=== PATIENT | female | born 1955 | race Caucasian/White ===

== ENCOUNTER → 2020-04-23 10:16 | Outpatient (CLI) | payer OTHER, SELFPAY ==
--- NOTE | ~2020-04-23 | DEXA_ITS ---
Bone Density Report Name: Betzy Etienne Age: 65 Sex: Female Ethnicity: White Date of : 1955 Indication: postmenopausal; screening for osteoporosis; height loss; Referring Provider: Fernandez, Glenys Antunez Study: Bone densitometry was performed. Exam Date: April 23, 2020 Accession number: [id number] Bone Density: Region BMD T-score Z-score Classification AP Spine (L1-L4) 1.097 0.5 2.1 Normal Femoral Neck (Left) 0.723 -1.1 0.3 Osteopenia Total Hip (Left) 0.815 -1.0 0.1 Normal Femoral Neck (Right) 0.731 -1.1 0.4 Osteopenia Total Hip (Right) 0.797 -1.2 -0.1 Osteopenia Total Hip Mean 0.806 -1.1 0.0 Osteopenia World Health Organization criteria for BMD impression classify patients as: Normal (T-score at or above -1.0), Osteopenia (T-score between -1.0 and -2.5), or Osteoporosis (T-score at or below -2.5). 10-year Fracture Risk(1): Major Osteoporotic Fracture 6.4% Hip Fracture 0.5% Reported Risk Factors: [place] (), Neck BMD=0.731, BMI=17.9 (1) FRAX(R) Version 3.08. Fracture probability calculated for an untreated patient. Fracture probability may be lower if the patient has received treatment. Previous Exams: Region Exam Age BMD T-score BMD Change BMD Change Date g/cm2 vs Baseline vs Previous AP Spine(L1-L4) 04/23/2020 65 1.097 0.5 -0.010 -0.010 06/25/2017 62 1.107 0.5 Total Hip(Left) 04/23/2020 65 0.815 -1.0 -0.030* -0.030* 06/25/2017 62 0.845 -0.8 Total Hip(Right) 04/23/2020 65 0.797 -1.2 -0.051* -0.051* 06/25/2017 62 0.849 -0.8 *Denotes significance at 95% confidence level, LSC for AP Spine = 0.022 g/cm2, LSC for Total Hip = 0.027 g/cm2 Clinical Information Provided by Patient: Has used the following medications: Vitamin D, Calcium, MTV Patient maximum height was 66 Menopause Age: 55 Does not regularly consume dairy products Drinks caffeinated beverages Onset of menses at age 14 Number of children 1 Missed period for more than 6 months in a row Impression: The patient has low bone mass, based on the Right Total Hip T-score. The patient has an estimated ten-year risk of hip fracture of 0.5% and an estimated ten-year risk of major fracture of 6.4%, based on the WHO FRAX algorithm. The BMD for the Total Hip(Left) decreased, changing by -0.030 since the last DXA exam. The BMD for the Total Hip(Right) decreased, changing by -0.051 since the
--- NOTE | ~2020-04-23 | MM_ITS ---
EXAMINATION: MM screening [facility] BI w mello HISTORY: Screening mammogram TECHNIQUE: Craniocaudal and mediolateral oblique 3-D tomosynthesis images were obtained and synthetic 2-D images were generated. CAD analysis was submitted and interpreted. COMPARISON: 08/23/2018, 06/16/2017 bilateral digital screening mammogram examinations BREAST PARENCHYMAL COMPOSITION: There are scattered areas of fibroglandular density. FINDINGS: There is a biopsy marker on the left; history of prior benign left breast biopsy. There is no evidence of suspicious mass, calcification, or architectural distortion to suggest malig tri in either breast. There has been no suspicious interval change. IMPRESSION: 1. No mammographic evidence of malignancy. 2. Recommend routine screening mammography in one year. BI-RADS Category 1: Negative Reviewed, dictated and finalized at location A. HELP DESK ASSOCIATE
== END ==
PROVIDERS: Visit Provider Nurse Practitioner Obstetrics & Gynecology
DX: Z12.31 Encounter for screening mammogram for malignant neoplasm of breast (principal); Z13.820 Encounter for screening for osteoporosis; M85.852 Other specified disorders of bone density and structure, left thigh; M85.851 Other specified disorders of bone density and structure, right thigh
CPT/HCPCS: 77063; 77067; 77080

== ENCOUNTER → 2021-09-18 10:39 | Outpatient (CLI) | payer OTHER, SELFPAY ==
--- NOTE | ~2021-09-18 | MM_ITS ---
EXAMINATION: MM screening [facility] BI w mello HISTORY: Screening TECHNIQUE: Craniocaudal and mediolateral oblique 3-D tomosynthesis images were obtained and synthetic 2-D images were generated. CAD analysis was submitted and interpreted. COMPARISON: Comparison to multiple prior studies sequentially, with oldest reviewed study dated 06/16. BREAST PARENCHYMAL COMPOSITION: The breasts are heterogeneously dense, which may obscure small masses . FINDINGS: There is no evidence of suspicious mass, calcification, or architectural distortion to sugg est malignancy in either breast. There has been no suspicious interval change. IMPRESSION: 1. No mammographic evidence of malignancy. 2. Recommend routine screening mammography in one year. BI-RADS Category 1: Negative Reviewed, dictated and finalized at location A.
== END ==
PROVIDERS: PCP Nurse Practitioner Obstetrics & Gynecology; Visit Provider Nurse Practitioner Obstetrics & Gynecology
DX: Z12.31 Encounter for screening mammogram for malignant neoplasm of breast (principal)
CPT/HCPCS: 77063; 77067

== ENCOUNTER → 2022-04-28 10:25 | Outpatient (CLI) | payer OTHER, MEDICARE, SELFPAY ==
--- NOTE | ~2022-04-28 | DEXA_ITS ---
Bone Density Report Name: LIANNA CHARLES Age: 67 Sex: Female Ethnicity: White Date of : 1955 Indication: osteopenia; height loss;postmenopausal Referring Provider: Fernandez, Glenys Antunez Study: Bone densitometry was performed. Exam Date: April 28, 2022 Accession number: [id number] Bone Density: Region BMD T-score Z-score Classification AP Spine (L1-L4) 1.087 0.4 2.1 Normal Femoral Neck (Left) 0.698 -1.4 0.2 Osteopenia Total Hip (Left) 0.751 -1.6 -0.3 Osteopenia Femoral Neck (Right) 0.770 -0.7 0.8 Normal Total Hip (Right) 0.758 -1.5 -0.3 Osteopenia Total Hip Mean 0.755 -1.6 -0.3 Osteopenia World Health Organization criteria for BMD impression classify patients as: Normal (T-score at or above -1.0), Osteopenia (T-score between -1.0 and -2.5), or Osteoporosis (T-score at or below -2.5). 10-year Fracture Risk(1): Major Osteoporotic Fracture 6.8% Hip Fracture 0.7% Reported Risk Factors: [place] (), Neck BMD=0.698, BMI=17.1 (1) FRAX(R) Version 3.08. Fracture probability calculated for an untreated patient. Fracture probability may be lower if the patient has received treatment. Previous Exams: Region Exam Age BMD T-score BMD Change BMD Change Date g/cm2 vs Baseline vs Previous AP Spine(L1-L4) 04/28/2022 67 1.087 0.4 -0.020 -0.010 04/23/2020 65 1.097 0.5 -0.010 -0.010 06/25/2017 62 1.107 0.5 Total Hip(Left) 04/28/2022 67 0.751 -1.6 -0.094* -0.064* 04/23/2020 65 0.815 -1.0 -0.030* -0.030* 06/25/2017 62 0.845 -0.8 Total Hip(Right) 04/28/2022 67 0.758 -1.5 -0.091* -0.040* 04/23/2020 65 0.797 -1.2 -0.051* -0.051* 06/25/2017 62 0.849 -0.8 *Denotes significance at 95% confidence level, LSC for AP Spine = 0.022 g/cm2, LSC for Total Hip = 0.027 g/cm2 Clinical Information Provided by Patient: Has used the following medications: Vitamin D, Calcium, MTV Patient maximum height was 66 Menopause Age: 55 Drinks caffeinated beverages Onset of menses at age 14 Number of children 1 Impression: The patient has low bone mass, based on the Left Total Hip T-score. The patient has an estimated ten-year risk of hip fracture of 0.7% and an estimated ten-year risk of major fracture of 6.8%, based on the WHO FRAX algorithm. The BMD for the Total Hip(Left) decreased, changing by -0.064 since the las
== END ==
PROVIDERS: PCP Nurse Practitioner Obstetrics & Gynecology; Visit Provider Nurse Practitioner Obstetrics & Gynecology
DX: Z78.0 Asymptomatic menopausal state (principal); M85.852 Other specified disorders of bone density and structure, left thigh; M85.851 Other specified disorders of bone density and structure, right thigh
CPT/HCPCS: 77080

== ENCOUNTER → 2023-05-22 12:28 | Outpatient (CLI) | payer MEDICARE, SELFPAY ==
--- NOTE | ~2023-05-22 | MM_ITS ---
EXAMINATION: MM screening [facility] BI w mello HISTORY: Screening mammogram TECHNIQUE: Craniocaudal and mediolateral oblique 3-D tomosynthesis images were obtained and synthetic 2-D images were generated. CAD analysis was submitted and interpreted. COMPARISON: September 18, 2021, April 23, 2020, August 23, 2018 screening mammogram examinations BREAST PARENCHYMAL COMPOSITION: The breasts are heterogeneously dense, which may obscure small masses . FINDINGS: New 4 mm low density circumscribed opacity in the upper outer quadrant of the right breast. Diagnostic right mammogram and right breast ultrasound examination are recommended. Otherwise there is no evidence of suspicious mass, calcification, or architectural distortion to sugg est malignancy in either breast. There has been no other suspicious interval change. IMPRESSION: 1. New 4 mm low-density circumscribed mass, upper outer right breast 2. Diagnostic right mammogram and right breast ultrasound examination are recommended BI-RADS Category 0: Incomplete: Needs additional imaging evaluation. Reviewed, dictated and finalized at location A. Y FARM OPERATOR IMPRESSION: 1. New 4 mm low-density circumscribed mass, upper outer right breast 2. Diagnostic right mammogram and right breast ultrasound examination are recom mended BI-RADS Category 0: Incomplete: Needs additional imaging evaluation.
== END ==
PROVIDERS: PCP Internal Medicine; Visit Provider Internal Medicine
DX: Z12.31 Encounter for screening mammogram for malignant neoplasm of breast (principal); R92.8 Other abnormal and inconclusive findings on diagnostic imaging of breast
CPT/HCPCS: 77063; 77067

== ENCOUNTER → 2023-06-19 08:40 | Outpatient (CLI) | payer MEDICARE, SELFPAY ==
--- NOTE | ~2023-06-19 | MMUS_ITS ---
EXAMINATION: MM diagnostic jeffrey RT w mello, US breast RT limited HISTORY: Right breast mass on screening mammogram TECHNIQUE: Additional 3-D tomosynthesis images of the right breast were performed and synthetic 2-D i mages were generated. CAD analysis was submitted and interpreted. High resolution limited right breas t ultrasound was performed. COMPARISON: 05/22/2023, 09/18/2021, 04/23/2020 FINDINGS: MAMMOGRAPHIC FINDINGS: There is a 5 mm oval, obscured, low density mass in the middle third of the upper outer quadrant of t he breast at the 11:00 location, 3 cm from the nipple. No suspicious calcification or architectural d istortion are identified. ULTRASOUND: There is a 4 mm cyst at the 11:00 location 3.5 cm from the nipple. There is a 4 mm cyst at the 11:00 location near the nipple. IMPRESSION: 1. No mammographic or sonographic evidence of malignancy. 2. Recommend routine screening mammography in one year. BI-RADS Category 2: Benign finding(s). Reviewed, dictated and finalized at location A. ET SALES SUPERVISOR IMPRESSION: 1. No mammographic or sonographic evidence of malignancy. 2. Recommend routine screening mammography in one year. BI-RADS Category 2: Benign finding(s).
== END ==
PROVIDERS: PCP Internal Medicine; Visit Provider Internal Medicine
DX: R92.8 Other abnormal and inconclusive findings on diagnostic imaging of breast (principal)
CPT/HCPCS: 76642; 77061; 77065; G0279

== ENCOUNTER 2024-10-24 11:44 | Outpatient (CLI) | payer MEDICARE, SELFPAY ==
--- NOTE | ~2024-10-24 | DEXA_ITS ---
Bone Density Report Name: LIANNA CHARLES Age: 69 Sex: Female Ethnicity: White Date of : 1955 Indication: postmenopausal; screening for osteoporosis; height loss; Referring Provider: RAKESH, JONEL Patel Study: Bone densitometry was performed. Exam Date: October 24, 2024 Accession number: [id number] Bone Density: Region BMD T-score Z-score Classification AP Spine(L1-L4) 1.079 0.3 2.2 Normal Femoral Neck (Left) 0.698 -1.4 0.3 Osteopenia Total Hip (Left) 0.776 -1.4 0.0 Osteopenia Femoral Neck (Right) 0.673 -1.6 0.1 Osteopenia Total Hip (Right) 0.764 -1.5 -0.1 Osteopenia Total Hip Mean 0.770 -1.5 -0.1 Osteopenia World Health Organization criteria for BMD impression classify patients as: Normal (T-score at or above -1.0), Osteopenia (T-score between -1.0 and -2.5), or Osteoporosis (T-score at or below -2.5). 10-year Fracture Risk(1): Major Osteoporotic Fracture 7.3% Hip Fracture 1.0% Reported Risk Factors: [place] (), Neck BMD=0.673, BMI=16.1 (1) FRAX(R) Version 3.08. Fracture probability calculated for an untreated patient. Fracture probability may be lower if the patient has received treatment. Clinical Information Provided by Patient: Has used the following medications: Vitamin D, Calcium Has the following medical conditions: [facility] Patient maximum height was 67.0 Menopause Age: 57 Does not regularly consume dairy products Drinks caffeinated beverages Onset of menses at age 14 Number of children 1 Impression: The patient has low bone mass, based on the Right Femoral Neck T-score. The patient has an estimated ten-year risk of hip fracture of 1% and an estimated ten-year risk of major fracture of 7.3%, based on the WHO FRAX algorithm. Discussion: BONE DENSITY IS LOW AT ONE OR MORE SKELETAL SITES. This patient's lowest T-score is low at one or more skeletal sites. It meets the World Health Organization's (WHO) criteria for ?low bone mass? (T-score between -1.0 and -2.5). The patient's 10-year risk of fracture as calculated by FRAX is less than the threshold where pharmacological therapy is recommended by the National Osteoporosis Foundation (NOF). However, all treatment decisions require clinical judgment and consideration of individual patient factors, including patient preferences, comorbidities, previous drug use, risk factors not captured in the FRAX model (e.g., frailty, falls, vitamin D deficiency, increased bone turnover, interval significant decline in bone density) and possible under or overestimation of fracture risk by FRAX. The patient should follow a healthful lifestyle (good nutrition with adequate calcium and vitamin D, and appropriate weight-bearing exercise). Follow-Up: Consider repeating this study in 2 to 3 years to reassess this patient's status, or sooner if there is some new clinical indication. Reported by: DARINEL on 10/24/2024 12:30:00 PM. Reviewed, dictated and finalized at location A.
--- OUTSIDE RECORDS SUMMARY | 2024-10-24 12:04 | XMS_ITS | Referral Summary ---
Author Organization [facility] [address] Address [address] [place] [address] Care Team Providers Care Rural Carrier Associate Name Role Phone Rodney Mathis MD Primary Care Provider [phone] Encounters Date Type Department Care Team Description 07/29/2024 [facility] [address] [facility] [address] [place] [address] Rodney Mathis MD uti 07/29/2024 Telephone [facility] Gastroenter[facility] [address] [facility] 12th [place] [address] [place] [id number] Chela Roca RN 07/27/2024 1:41 PM [facility] Anesthesia Event [facility] [place] [address] [facility] [address] [place] [id number] Vicky Boone MD Weinzettel, Aaron M. HIGHWAY ENGINEER 07/27/2024 3:15 PM [facility] - 07/27/2024 4:00 PM [facility] Surgery [facility] [place] [address] [facility] [address] [place] [id number] George Grove MD PhD COLONOSCOPY 07/27/2024 1:09 PM [facility] - 07/27/2024 3:22 PM [facility] Hospital Encounter [facility] [place] [address] [facility] [address] [place] [id number] George Grove MD PhD Discharge Disposition: Discharge to home or self care 07/25/[address] [facility] Specialty Services [address] [place] [phone] Mariia Hong RN from Last 3 Months Allergies Active Allergy Reactions Criticality Noted Date Comments Nitrofurantoin Monohyd/M-Cryst Headache Low 04/09 Tree Nut Tree Nuts Medications multivitamin with minerals tablet Take 1 tablet by mouth daily Active EPINEPHrine 0.3 mg/0.3 mL auto-injection syringeIndicati ons:Anaphylaxis Inject 0.6 mL (0.6 mg total) into the muscle as instructed as needed for anaphylaxis Call 911 after use. 2 each 3 Active olmesartan (BENICAR) 20 mg tablet TAKE 1 TABLET BY MOUTH EVERY DAY 90 tablet 1 5 Active polyethylene glycol (GoLYTELY) 236-22.74-6.74 -5.86 gram solution Two days before your test on 07/20 At 6 pm, drink 2 liters (half) of 1st jug of nulytely. Then on the day before your test 07/21 At 10:00 am drink the 2nd half (2 Liters) of the 1st jug of Nulytely; Then at 6 pm drink 2 liters (Half) of the 2nd jug of Nulytely, And lastly on the day of test 07/22 At 3:30 am drink the remaining 2 Liters of 2nd jug of Nulytely. 4000 mL 5 Active Active Problems Problem Noted Date Diagnosed Date Constipation 07/19/2024 Essential hypertension 10/14/2021 Assessment & Plan (01/13/2024 9:57 AM CDT): BP doing well. Numerous blood pressure she brings from home are reviewed. Will continue as before RTO 6 months Immunizations Immunization Administration Dates Next Due Flucelvax Influenza Quad 03/07/2019,03/02/2018 Influenza, Quad, Adjuvantated, Intramuscular 07/2022,03/25/2022 Influenza, Quadrivalent, Fatemeh l Culture-based MDCK, Preservative Free, Antibiotic Free, Intramuscular 03/25/2021 Influenza, Quadrivalent, Rec ombinant, Egg Free, Preservative Free, Intramuscular 03/22/2016 Influenza, Quadrivalent, Spl it, Preservative Free, Intramuscular 02/22/2020,03/05/2017 Influenza, Trivalent, Adjuvanted, Intramuscular 03/30/2024 Influenza, Trivalent, IM (MDV) 04/08/2015,2012 Pneumococcal Conjugate Pcv20 04/24/2022 ZOSTER LIVE 03/06/2017 ZOSTER Recombinant 07/08/2020,01/21/2020 Social History Tobacco Use Types Packs/Day Years Used Date Smoking Tobacco: Never Alcohol Use Standard Drinks/Week Comments Yes 0 (1 standard drink = 0.6 oz pur e alcohol) AUDIT-C Answer Date Recorded Q1: How often do you have a drink containing alc ohol? Monthly or less 07/27/2024 Q2: How many drinks containi ng alcohol do you have on a typical day when you are drinking? 1 or 2 07/27/2024 Frequency of Binge Drinking Not on file 09/2024 PHQ-2 Answer Date Recorded PHQ-2 Total Score (If total score is 3 or more points, staff should administer the PHQ-9) 0 01/07/2023 Personal Safety Answer Date Recorded Have you ever been in or are you currently in a harmful physical or emotional relationship or is someone making you feel afraid or unsafe? Denies 07/27/2024 Comments No Sex and Gender Information Value Date Recorded Sex Assigned at Not on file Legal Sex Female 2:20 AM [facility] Gender Identity Female 04/10/2021 7:33 PM [facility]E Sexual Orientation Straight 04/10/2021 7: 33 PM [facility] Last Filed Vital Signs Vital Sign Reading Time Taken Comments Blood Pressure 151/76 07/27/2024 2:55 PM [facility] Pulse 84 07/27/2024 2:55 PM [facility] Temperature 36.3 C (97.3 F) 07/27/2024 2:35 PM [facility] Respiratory Rate 14 07/27/2024 2:55 PM [facility] Oxygen Saturation 99% 07/27/2024 2:55 PM [facility] Inhaled Oxygen Concentration - - Weight 43.5 kg (96 lb) 07/27/2024 1:15 PM [facility] Height 167.6 cm (5' 6) 07/27/2024 1:15 PM [facility] Body Mass Index 15.49 07/27/2024 1:15 PM [facility]E Plan of Treatment Scheduled Procedures Name Priority Associated Diagnoses Date/Ti me COLONOSCOPY Encounter for screening colonoscopy Procedures Procedure Name Priority Date/Time Associated Diagnosis Comments COLONOSCOPY Open Access 07/27/2024 1:41 PM [facility] Constipation, unspecified constipation type COLONOSCOPY 07/27/2024 1:40 PM [facility]E from Last 3 Months Results * Colonoscopy (07/27/2024 1:40 PM [facility]) Anatomical Region Laterality Modality Other Narrative Procedure Note George Grove MD PhD - 07/27/2024 1:40 PM [facility] Patient Name: Betzy Etienne Procedure Date: 07/27/2024 1:40 PM Date of : 1955 Admit Type: Outpatient Age: 69 Gender: Female Attending MD: George Grove M.D. Room: [facility] RO[facility] 3 Note Status: Finalized Procedure: Colonoscopy Indications: Screening for colorectal malignant neoplasm, Thisis the patient's first colonoscopy, Incidental - Constipation Referring MD: Rodney Mathis M.D. Providers: George Grove M.D. Medicines: Monitored Anesthesia Care Complications: No immediate complications. Estimated Blood Loss: Estimated blood loss: none. Procedure: Pre-Anesthesia Assessment: - Immediately prior to administration ofmedications, the patient was re-assessed for adequacy to receive sedatives. - The risks and benefits of the procedure and the sedation options and risks were discussed with the patient. All questions were answered and informed consent was obtained. The benefits, risks and alternatives of theprocedure and sedation were discussed and informed consentwas obtained. All questions were answered. Please referto the signed informed consent document in the medical record. The scope was passed under direct vision.The [id number] endoscope was introduced through the anus and advanced to the terminal ileum, with identification of the appendiceal orifice and IC valve. The colonoscopy was performed without difficulty. The patient tolerated the procedurewell. The quality of the bowel preparation was evaluated using the BBPS ([place] Bowel Preparation Scale)with scores of: Right Colon = 3, Transverse Colon = 3and Left Colon = 3 (entire mucosa seen well with no residual staining, small fragments of stool oropaque liquid). The total BBPS score equals 9. The bowel preparation used was GoLYTELY via extended prepdose instruction. The quality of the bowel preparationwas excellent. Bowel prep was administered using asplit dose. Findings: The perianal and digital rectal examinations were normal. The terminal ileum appeared normal. A few diverticula were found in the sigmoid colon and ascendingcolon. Non-bleeding internal hemorrhoids were found during retroflexion. The exam was otherwise without abnormality on direct and retroflexion views. Impression: - The examined portion of the ileum was normal. - Diverticulosis in the sigmoid colon and in the ascending colon. - The examination was otherwise normal on directand retroflexion views. - No specimens collected. Recommendation: - Discharge patient to home. - Consider repeat colonoscopy in 10 years for screening purposes. - For constipation, consider high fiber diet anddaily Miralax with now threshold to downtitrate if doing well. Persistent constipation despite these interventions may warrant evaluation with a GI provider. Electronically signed by George Grove MD George Grove M.D. 07/27/2024 2:41:37 PM . Number of Addenda: 0 Note Initiated On: 07/27/2024 1:40 PM George Grove MD PhD ENDOSCOPY PROCEDURES Final Result from Last 3 Months Insurance [employer] [facility] Address: [facility] [id number] [place] [phone] [place] [address] [facility] PPO [employer] MEDICARE A[employer] MEDICARE Advance Directives For more information, please contact: [phone] * Full Code (Latest Code Status on File) Date Activated Date Inactivated Comments 07/27/2024 1:13 PM 07/27/2024 7:23 PM Care Teams Rural Carrier Associate Relationship Specialty Start Date End Date Rodney Mathis MD PCP - General Internal Medicine 06/01/20
--- OUTSIDE RECORDS SUMMARY | 2024-10-24 12:04 | XMS_ITS | Clinical Summary ---
Author Organization [facility] [address] Address [address] [place] [address] Care Team Providers Care Nail Assembly Machine Operator Name Role Phone Rodney Mathis MD Primary Care Provider [phone] Allergies Active Allergy Reactions Criticality Noted Date [...] Will continue as before RTO 6 months Encounters Date Type Department Care Team Description 07/29/2024 Telephone [facility] [address] [facility] [address] [place] [address] Rodney Mathis MD uti 07/29/2024 Telephone [facility] Gastroenterology [address] [facility] [address] 12th [place] [address] [place] [id number] Chela Roca RN 07/27/2024 3:15 PM PROGRAMMER ENGINEERING [employer] SCIENT[employer] - 07/27/2024 4:00 PM PROGRAMMER ENGINEERING [employer] SCIENTIFIC Surgery [facility] Digestive [facility] [address] [facility] [address] [place] [address] George Grove MD PhD COLONOSCOPY 07/27/2024 1:41 PM PROGRAMMER ENG[employer] SCIENT[employer] Anesthesia Event [facility] Digestive [facility] [address] [facility] [address] [place] [address] Vicky Boone MD Weinzettel, Aaron M., LOOM OPERATOR APPRENTICE 07/27/2024 1:09 PM PROGRAMMER ENGINEERING [employer] SCIENTIFIC - 07/27/2024 3:22 PM PROGRAMMER ENGINEERING [employer] SCIENTIFIC Hospital Encounter [facility] Digestive [place] [address] [facility] [address] [place] [address] George Grove MD PhD Discharge Disposition: Discharge to home or self care 07/25/2024 Telephone [facility] Specialty Services [address] [place] [address] Mariia Hong RN from Last 3 Months Immunizations Immunization Administration Dates Next Due Flucelvax [...] 04/24/2022 ZOSTER LIVE 03/06/2017 ZOSTER Recombinant 07/08/2020,01/21/2020 Surgical History Surgery Date Site/Laterality Comments SECTION Medical History Medical History Date Comments Hypertension Hypertension Hx Other Medical Chronic Anxiety Family History Medical History Relation Name Comments Other Father 2 Natural Causes; Stroke Mother 2 Stroke; Relation Name Status Comments Father 1 Alive Father 2 Mother 1 Alive Mother 2 Social History Tobacco Use Types Packs/Day Years [...] on file Legal Sex Female 2:20 AM PROGRAMMER ENGINEERING [employer] SCIENTIFIC Gender Identity Female 04/10/2021 7:33 PM PROGRAMMER ENGINEERING [employer] SCIENTIFIC Sexual Orientation Straight 04/10/2021 7: 33 PM PROGRAMMER ENGINEERING [employer] SCIENTIFIC Obstetrics History Last Filed Vital Signs Vital Sign Reading Time Taken Comments Blood Pressure 151/76 07/27/2024 2:55 PM PROGRAMMER ENG[employer]ERING [employer] SCIENTIFIC Pulse 84 07/27/2024 2:55 PM PROGRAMMER ENGINEERING [employer] SCIENTIFIC Temperature 36.3 C (97.3 F) 07/27/2024 2:35 PM PROGRAMMER ENGINEERING [employer] SCIENTIFIC Respiratory Rate 14 07/27/2024 2:55 PM PROGRAMMER ENGINEERING [employer] SCIENTIFIC Oxygen Saturation 99% 07/27/2024 2:55 PM PROGRAMMER ENGINEERING [employer] SCIENTIFIC Inhaled Oxygen Concentration - - Weight 43.5 kg (96 lb) 07/27/2024 1:15 PM PROGRAMMER ENGINEERING AND SCIENTIFIC Height 167.6 cm (5' 6) 07/27/2024 1:15 PM PROGRAMMER ENGINEERING [employer] SCIENTIFIC Body Mass Index 15.49 07/27/2024 1:15 PM PROGRAMMER ENGINEERING AND SCIENTIFIC Plan of Treatment Scheduled Procedures Name Priority Associated Diagnoses Date/Ti me COLONOSCOPY Encounter for screening colonoscopy Health Maintenance Due Date Last Done Comments Hepatitis C Screening 1955 Osteoporosis Screening-Bone Density Scan 1955 DTaP/Tdap/Td Vaccine (1 - Tdap) 02/01/1968 Hepatitis B Screening 1975 Depression Screening 01/08/2024 01/07/2023 Well Visit 65+ 01/08/2024 01/07/2023, 06/04/2020 Breast Cancer Screening-Mammogram 05/26/2024 05/26/2023, 09/18/2021, 04/23/2020 Covid-19 Vaccine (2023-2 5 season) 2024 05/03/2024, 04/29/2023, 03/04/2022, Additional history exists Fall Risk Assessment 07/27/2025 07/27/2024, 01/08/20 23 Colon Cancer Screening-Colonoscopy 07/27/20342024 Zoster Vaccine Completed 07/08/2020, 12/24, 03/06/2017 Pneumococcal vaccine 65+ Completed 04/24/2022 Influenza Vaccine Completed 03/30/2024, , 03/25/2022, Additional history exists Procedures Procedure Name Priority Date/Time Associated Diagnosis Comments COLONOSCOPY Open Access 07/27/2024 1:41 PM PROGRAMMER ENGINEERING [employer] SCIENTIFIC Constipation, unspecified constipation type COLONOSCOPY 07/27/2024 1:40 PM PROGRAMMER ENGINEERING AND SCIENTIFIC from Last 3 Months Results * Colonoscopy (07/27/2024 1:40 PM PROGRAMMER ENGINEERING AND SCIENTIFIC) Anatomical Region Laterality Modality Other Narrative Procedure Note George Grove MD PhD - 07/27/2024 1:40 PM [facility] Patient Name: Betzy Etienne Procedure Date: 07/27/2024 1:40 PM Date of : 1955 Admit Type: Outpatient Age: 69 Gender: Female Attending MD: George Grove M.D. Room: [facility] ENDOSCOPY ROOM 3 Note Status: Finalized Procedure: [...] The scope was passed under direct vision.The [id number] endoscope was introduced through the anus and advanced to the terminal ileum, with identification of the appendiceal orifice and IC valve. The colonoscopy was performed without difficulty. The patient tolerated the procedurewell. The quality of the bowel preparation was evaluated using the BBPS ([place] Bowel Preparation Scale)with scores of: Right Colon [...] 0 Note Initiated On: 07/27/2024 1:40 PM us George Grove MD PhD ENDOSCOPY PROCEDURES Final Result from Last 3 [place] [address] [employer] [facility] [place] [address] [employer] [address] [facility] MEDIC[facility] Advance Directives For more information, please contact: [phone] * Full Code (Latest Code Status on File) Date Activated Date Inactivated Comments 07/27/2024 1:13 PM 07/27/2024 7:23 PM Care Teams Nail Assembly Machine Operator Relationship Specialty Start Date End Date Rodney Mathis MD PCP - General Internal Medicine 06/01/20
--- OUTSIDE RECORDS SUMMARY | 2024-10-24 12:04 | XMS_ITS | Clinical Summary ---
Author Organization [facility] Address [address] [place] [address] Care Team Providers Care Rn Mds Name Role Phone Rodney Mathis MD Primary Care Provider [phone] Source Comments [facility],non-owned Affiliates and Associated Physician Practices is amultiple site organization consisting of ambulatory clinics and hospital sitesin [place], [place], [place] and [place]. This disclosure is being madepursuant to the Care Everywhere program and may not contain all information available regarding this patient. Last updated 18.[facility] [employer] Allergies Active Allergy Reactions Criticality Noted Date Comments Tree Nuts 03/05/2017 Immunizations Immunization Administration Dates Next Due FLU VACCINE QUAD IIV4 PF ID 03/22/2016 INFLUENZA VACCINE, QUADR. (F LUZONE; FLULAVAL; FLUARIX; AFLURIA QUADRIVALENT; 6MO+), 0.5 ML (IIV4) 03/05/2017 Social History Tobacco Use Types Packs/Day Years Used Date Smoking Tobacco: Never Assessed Comments Unknown Sex and Gender Information Value Date Recorded Sex Assigned at Not on file Legal Sex Female 12:57 PM CDT Gender Identity Not on file Sexual Orientation Not on file Plan of Treatment Health Maintenance Due Date Last Done Comments BONE DENSITY TESTING 1955 COLOGUARD (AGES 45-75) - COL ON CA SCREENING 1955 COLON MONITORING 1955 COLONOSCOPY - COLON CA SCREENING 1955 CT COLONOGRAPHY - COLON CA SCREENING 1955 Colorectal Cancer Screening 1955 FIT - COLON CA SCREENING 1955 FLEX SIG - COLON CA SCREENING 1955 LIPID TESTING 1955 MAMMOGRAM 1955 HEPATITIS C SCREENING 01/27/1975 DTAP/TDAP/TD VACCINES (1 - Tdap) 02/01/1976 PNEUMOCOCCAL VACCINE 50+ (1 of 1 - PCV) 2007 ZOSTER VACCINE (1 of 2) 2007 COVID-19 VACCINE (1 - 2023-2 5 season) 2024 DEPRESSION SCREENING 05/25/2024 INFLUENZA VACCINE (Season Ended) 2025 03/05/2017, 03/22/2016 Respiratory Syncytial Virus (RSV) Vaccine Pt: or over 60 yrs (1 - 1-dose 75+ series) 02/01/2032 HEPATITIS B VACCINE Aged Out No longe r eligible based on patient's age to complete this topic HIB VACCINE Aged Out No longer eligi ble based on patient's age to complete this topic HPV VACCINE Aged Out No longer eligi ble based on patient's age to complete this topic MENINGOCOCCAL (Group B) VACCINE SHARED DECISION-MAKING Aged Out No longer eligible based on patient's age to complete this topic MENINGOCOCCAL GROUPS A/C/Y/W VACCINE Aged Out No longer eligible b ased on patient's age to complete this topic Insurance Care Teams Rn Mds Relationship Specialty Start Date End Date Rodney Mathis MD PCP - General Internal Medicine 03/05/17
== END 2024-10-24 11:45 | disposition home or self-care (01) ==
PROVIDERS: PCP Internal Medicine; Visit Provider Internal Medicine
DX: Z78.0 Asymptomatic menopausal state (principal); M85.852 Other specified disorders of bone density and structure, left thigh; M85.851 Other specified disorders of bone density and structure, right thigh
CPT/HCPCS: 77080

== ENCOUNTER 2024-10-28 11:34 | Outpatient (CLI) | payer MEDICARE, SELFPAY ==
--- NOTE | ~2024-10-28 | MM_ITS ---
EXAMINATION: MM screening [facility] BI w mello HISTORY: Screening TECHNIQUE: Craniocaudal and mediolateral oblique 3-D tomosynthesis images were obtained and synthetic 2-D images were generated. CAD analysis was submitted and interpreted. COMPARISON: 05/22/2023 through 08/23/2018. BREAST PARENCHYMAL COMPOSITION: The breasts are heterogeneously dense, which may obscure small masses . FINDINGS: There is no evidence of suspicious mass, calcification, or architectural distortion to sugg est malignancy in either breast. Biopsy clip in the left breast. There has been no suspicious interva l change. IMPRESSION: 1. No mammographic evidence of malignancy. 2. Recommend routine screening mammography in one year. BI-RADS Category 1: Negative Reviewed, dictated and finalized at location B.
== END 2024-10-28 11:35 | disposition home or self-care (01) ==
LOC: MICIMG 11:34
PROVIDERS: PCP Internal Medicine; Visit Provider Internal Medicine
DX: Z12.31 Encounter for screening mammogram for malignant neoplasm of breast (principal)
CPT/HCPCS: 77063; 77067